=== PATIENT | female | born 1945 | race Asian ===

== ENCOUNTER 2019-01-01 17:49 | Emergency (ER) | payer SELFPAY ==
[~2019-01-01] VITALS: Ht 152.4 cm; Wt 40.8 kg
--- NOTE | 2019-01-01 17:50 | NUR ---
BIB family (daughter translating for pt ), pt immediately brought to room 4a from ER waiting room via w/c, Dr. Engle at bedside.
--- NOTE | 2019-01-01 17:57 | NUR ---
Code Stroke activated by .
[2019-01-01] MEDS ORDERED: IV NORMAL SALINE 500 ML BAG IV ONE (18:00)
--- NOTE | 2019-01-01 18:00 | NUR ---
Called TeleStroke Line, Dr. Connolly to call back.
--- NOTE | 2019-01-01 18:05 | NUR ---
spoke with (Neuro) via telephone.
[2019-01-01 18:14] LABS: BASOPHILS % (AUTO) 0.5 % (0.0-2.0); EOSINOPHILS # (AUTO) 0.1 K/uL (0.0-0.7); EOSINOPHILS % (AUTO) 1.7 % (0.0-7.0); HEMATOCRIT 35.4 % (31.2-41.9); HEMOGLOBIN 11.5 g/dL (10.9-14.3); LYMPHOCYTES # (AUTO) 1.6 K/uL (20.0-40.0); LYMPHOCYTES % (AUTO) 32.8 % (20.5-51.5); MEAN CORPUSCULAR HEMOGLOBIN 27.8 uug (24.7-32.8); MEAN CORPUSCULAR HGB CONC 33 g/dL (32.3-35.6); MEAN CORPUSCULAR VOLUME 85.7 fL (75.5-95.3); MONOCYTES # (AUTO) 0.4 K/uL (2.0-10.0); MONOCYTES % (AUTO) 8.8 % (0.0-11.0); NEUTROPHILS # (AUTO) 2.8 K/uL (1.8-8.9); NEUTROPHILS % (AUTO) 56.2 % (38.5-71.5); PLATELET COUNT (AUTO) 166 K/uL (179-408); RED BLOOD CELL COUNT(AUTO) 4.13 MIL/uL (3.63-4.92)
--- NOTE | 2019-01-01 18:18 | NUR ---
Pt back from CT, at bedside.
--- NOTE | 2019-01-01 18:20 | NUR ---
PER FAMILY PT IS PRESCRIBED AN ANTICOAGULANT (NAME UNKNOWN) BUT PT HAS BEEN NON-COMPLIANT AND HAS NOT BEEN TAKING PRESCRIBED.
[2019-01-01 18:21] LABS: CARBON DIOXIDE 26 mmol/L (21-32); CHLORIDE 105 mmol/L (98-107); GLUCOSE 114 mg/dL (74-106); POTASSIUM 3.8 mmol/L (3.5-5.1); UREA NITROGEN, BLOOD 22 mg/dL (7-18)
[2019-01-01 18:27] LABS: ALANINE AMINOTRANSFERASE 24 U/L (14-59); ALKALINE PHOSPHATASE 76 U/L (50-136); ASPARTATE AMINOTRANSFERASE 17 U/L (15-37); BILIRUBIN,DIRECT 0.1 mg/dL (0.0-0.2); BILIRUBIN,TOTAL 0.1 mg/dL (0.2-1.0); CHOLESTEROL 144 mg/dL (<200); CREATININE 0.7 mg/dL (0.6-1.3); HDL CHOLESTEROL 40 mg/dL (40-60); TOTAL PROTEIN, SERUM 6.7 g/dL (6.4-8.2); TRIGLYCERIDES 161 MG/DL (30-150)
[2019-01-01] MEDS ORDERED: ASPIRIN 325 MG TABLET PO ONE (18:30)
[2019-01-01] MEDS ORDERED: ASPIRIN 325 MG TABLET ONE (18:35)
[2019-01-01] MEDS ORDERED: [UNRECOGNIZED DRUG - REMARK] (18:44)
--- NOTE | 2019-01-01 18:45 | NUR ---
Family still unable to provide information about current home medications and medical history, daughter states the pt is visiting her and she will attempt to get more information.
--- NOTE | 2019-01-01 18:45 | NUR ---
Radiology dept notified of CTA order.
[2019-01-01] MEDS ORDERED: SWABABLE VALVE TRANSFER SET EA MC ONE (18:53)
[2019-01-01] MEDS ORDERED: IV NORMAL SALINE 250 ML IV ONE (18:53)
[2019-01-01] MEDS ORDERED: IOHEXOL 350 100 ML INFUS..BTL ONE (18:53)
--- NOTE | 2019-01-01 19:03 | NUR ---
SBAR to [facility]
--- NOTE | 2019-01-01 19:04 | NUR ---
Pt out of ER for CTA.
--- NOTE | 2019-01-01 19:36 | NUR ---
Pt back to ER from CTA.
--- NOTE | 2019-01-01 21:10 | NUR ---
Dr. Espana speaking with family using retail event assistant phone.
--- NOTE | 2019-01-01 21:15 | NUR ---
Patient does not wish to proceed with medical care recommended by Dr. Espana. Patient given information related to possible complications, up to and including , which could occur as a result of leaving the hospital at this time, using termite control servicer phone in beng[place]. Patient verbalizes understanding of risks involved due to leaving against medical advice. Patient has signed AMA form.
--- NOTE | 2019-01-01 21:39 | NUR ---
Patient discharged to home in stable conditon. Written and verbal after care instructions given. Patient verbalizes understanding of instructions. Pt ambulated out of ER with steady gait, no acute signs of distress, all belongings taken, VSS, IV site discontinued, accompanied by family, to be driven home via private vehicle by family, provided with copies of diagnostic results and AMA form signed.
[2019-01-01 21:42] VITALS: BP 168/107
== END 2019-01-01 21:48 | disposition left against medical advice (07) ==
LOC: ER 17:52
DX: G45.9 Transient cerebral ischemic attack, unspecified (principal)
CPT/HCPCS: 36415; 70450; 70496; 70498; 71045; 80048; 80061; 80076; 82962; 84484; 85025; 85730; 93005; 99284; Q9967; 70030-TC; A4663; J7040; J7050